=== PATIENT | male | born 1985 | race Caucasian/White ===

== ENCOUNTER 2024-06-03 13:12 | Outpatient (AMB) | payer OTHER, SELFPAY ==
--- NOTE | 2024-06-03 13:14 | A.OFFPC_ITS ---
Vital Signs 06/03/24 13:21 Height 5 ft 10 in Weight 201 lb 4 oz BMI 28.9 BP 134/82 Blood Pressure Location Rt brachial Position Sitting Respiration 16 Pulse 66 Pulse Source Pulse Oximeter Temp 97.7 F Temp Source Temporal Artery Scan Pulse Oximetry (%) 99 Oxygen Delivery Method Room Air Intake Visit Reasons: Tingling in both hands and feet Intake Note: patient here c/o tingling in hands, feet, testicles. Poultry Sexer Required: No Allergies No Known Allergies [No Known Allergies*] Allergy (Verified 06/03/24 13:18) Tobacco use date assessed: 06/03/24 Dental Screening Dental Screen Date: 06/03/24 Did you have a dental visit in the last 12 months?: No Did you have a dental problem in the last 6 months where you did not have access to dental care?: No HPI Tingling in both hands and feet HPI Details Pt is a 38 y/o male who presents today to the walk-in with complaints of tingling in the hands and feet x 7 days. He states it will last all day long but will wax and wane in intensity. He states that he is really worried that he has rheumatoid arthritis because his joints especially in the hands, wrists and feet feel intermittently stiff and tender. No joint swelling. No erythema or rashes. He states that he does not do a lot of repetitive motions. He has not tried anything besides ibuprofen for her symptoms which he states was ineffective. He denies any weakness, headaches, vision changes, back issues, neck pain. He has not seen his PCP in over 5 years. He called to get labs and they told him that he would need to reestablish care. He does report a past medical history of hypertension but has not been on medications in over 5 years. Unemployed. No known tick bites. No recent travel. He does have a fam hx of t2dm. No fam hx of autoimmune illnesses. [facility] Medical History (Updated 06/03/24 @ 13:43 by Kirstin Varela PA-C) Hemorrhoid HTN (hypertension) Family History (Updated 06/03/24 @ 13:21 by Jennifer Ricci) Father FH: mental illness Paternal Aunt FH: mental illness Social History Housing: House Patient Tobacco Use Status: Never used Tobacco e-Cigarette/Vaping Use: Never Used Second Hand Smoke Exposure: No service: No Current occupational status: unemployed Current occupational exposures/hazards: No Cognitive needs: No Hearing needs: No Vision needs: Yes Questionnaire AUDIT C Alcohol Use Questionnaire (AUDIT-C) 1. How often do you have a drink containing alcohol?: Never Total Score: 0 Physical exam (Primary Care) Vital Signs: Last Vital Signs Temp 97.7 F 06/03/24 13:21 Pulse 66 06/03/24 13:21 Resp 16 06/03/24 13:21 BP 134/82 06/03/24 13:21 Pulse Ox 99 06/03/24 13:21 Oxygen Delivery Method Room Air 06/03/24 13:21 BMI result Body Mass Index 28.9 Tobacco/Smoking Status: Tobacco use Status Tobacco use date assessed 06/03/24 06/03/24 13:19 Patient Tobacco Use Status Never used Tobacco 06/03/24 13:19 e-Cigarette/Vaping Use Never Used 06/03/24 13:19 Const Orientation/consciousness: patient oriented x3 Neck Neck: Yes no lymphadenopathy Thyroid: Thyroid normal Carotids: no bruits Resp Auscultation: clear to auscultation bilaterally Cardio Rate: regular rate Rhythm: regular rhythm Heart sounds: S1 normal heart sound present and S2 normal heart sound present Peripheral pulses: radial pulses present, posterior tibial pulses present and dorsalis pedis present Back/Spine/Pelvis Thoracic/Lumbar Spine: thoraco-lumbar ROM normal Neuro General: patient oriented x3, gait normal, Normal light touch and pain sensation, no focal motor deficits, CN's II-XI intact bilaterally, normal sensation to monofilament and deep tendon reflexes 2+ bilaterally Gait exam (Neuro): Normal gait present Motor exam (neuro): 5/5 motor strength present throughout Sensory Exam: double simultaneous stimulation for sensation normal Extrem General: Yes normal to inspection Assessment and Plan Assessment & Plan (1) Paresthesias: Code(s): R20.2 - Paresthesia of skin Plan: Labs ordered today. Physical exam is unremarkable. Advised patient to follow up with PCP and get established. We will follow up pending test results. He will follow up sooner if anything worsens or changes. (2) Polyarthralgia: Code(s): M25.50 - Pain in unspecified joint Plan: As above. Orders: Orders TSH reflex Free T4 06/03/24 M25.50 - Pain in unspecified joint, R20.2 - Paresthesia of skin Lyme IgG/IgM w/reflex to WB 06/03/24 M25.50 - Pain in unspecified joint, R20.2 - Paresthesia of skin Vitamin B12 and Folate 06/03/24 M25.50 - Pain in unspecified joint, R20.2 - Paresthesia of skin IRON PROFILE 06/03/24 M25.50 - Pain in unspecified joint, R20.2 - Paresthesia of skin Hemoglobin A1c 06/03/24 M25.50 - Pain in unspecified joint, R20.2 - Paresthesia of skin CHERELLE Reflex Titer and Pattern 06/03/24 M25.50 - Pain in unspecified joint, R20.2 - Paresthesia of skin Complete Blood Count Auto Diff 06/03/24 M25.50 - Pain in unspecified joint, R20.2 - Paresthesia of skin Rheumatoid Factor 06/03/24 M25.50 - Pain in unspecified joint, R20.2 - Paresthesia of skin Magnesium 06/03/24 M25.50 - Pain in unspecified joint, R20.2 - Paresthesia of skin Comprehensive Met. Panel 06/03/24 M25.50 - Pain in unspecified joint, R20.2 - Paresthesia of skin Ferritin 06/03/24 M25.50 - Pain in unspecified joint, R20.2 - Paresthesia of skin Erythrocyte Sedimentation Rate 06/03/24 M25.50 - Pain in unspecified joint, R20.2 - Paresthesia of skin Coding Level of Care Code New Pt Level 4 (39534) Complex EM visit Add On G2211 Diagnoses Paresthesias R20.2 Polyarthralgia M25.50
[2024-06-03 13:21] VITALS: BP 134/82; PULSE 66; RESP 16; TEMP 36.5; O2SAT 99; BMI 28.9
== END 2024-06-03 13:45 | disposition home or self-care (01) ==
PROVIDERS: PCP Family Medicine; Visit Provider Physician Assistant
DX: R20.2 Paresthesia of skin (principal); M25.50 Pain in unspecified joint
CPT/HCPCS: 99204; G2211

== ENCOUNTER 2024-06-03 13:58 | Outpatient (REF) | payer OTHER, SELFPAY ==
[2024-06-03 17:25] LABS: MANUAL DIFF FLAG NO
[2024-06-03 17:33] LABS: Basophils Percent Auto 0.2 % (0-2); Eosinophils Absolute Auto 0.1 X10*3/uL (0.0-0.4); Eosinophils Percent Auto 0.5 % (0-4); Hematocrit 42.2 % (42.0-52.0); Imm Gran Abs Auto 0.04 X10*3/uL (0.00-0.03); Imm Gran Pct Auto 0.4 % (0.0-0.4); Lymphocytes Absolute Auto 2.7 X10*3/uL (1.2-4.9); Lymphocytes Percent Auto 29.3 % (20-40); Mean Corpuscular HGB Conc 33.2 g/dl (31.0-36.0); Mean Corpuscular Volume 90.4 fL (80.0-98.0); Mean Platelet Volume 9.3 fL (9.4-12.4); Monocytes Absolute Auto 0.8 X10*3/uL (0.1-1.2); Monocytes Percent Auto 8.5 % (2-11); Neutrophils Absolute Auto 5.7 x10*3/uL (2.0-8.3); Neutrophils Percent Auto 61.1 % (45-73); Platelet Count 384 X10*3/uL (160-400); Red Blood Count 4.67 X10*6/uL (4.60-5.80); Red Cell Distribution Width 13.1 % (11.0-16.0); White Blood Count 9.3 X10*3/uL (4.8-10.8)
[2024-06-03 18:22] LABS: Estimated Average Glucose 108 mg/dL; Hemoglobin A1c % 5.4 % (<6.0)
[2024-06-03 18:33] LABS: Erythrocyte Sedimentation Rate 12 MM/HR (0-15)
[2024-06-03 19:25] LABS: Alanine Aminotransferase 20 U/L (0-40); Albumin Level 4.6 g/dL (3.5-5.0); Alkaline Phosphatase 64 U/L (39-117); Anion Gap 16 (12-20); Aspartate Amino Transferase 22 U/L (5-37); Bilirubin Total 0.5 mg/dL (0.0-1.0); Blood Urea Nitrogen 11 mg/dL (9-16); Calcium 9.8 mg/dL (8.4-10.2); Carbon Dioxide 21 mmol/L (22-29); Chloride 106 mmol/L (96-108); Estimated Glomerular Filt Rate > 60; Glucose Random 96 mg/dL (60-115); Iron 92 mcg/dL (45-160); Percent Iron Saturation 30 % (15-50); Sodium 139 mmol/L (135-145); Total Iron Binding Capacity 302 mcg/dL (228-428); Total Protein 8.3 g/dL (6.5-8.0); Unsaturated Iron Binding 210 ug/dL
[2024-06-03 19:26] LABS: Rheumatoid Factor < 13.0 IU/mL (<15.0)
[2024-06-03 19:42] LABS: Ferritin 58 ng/mL (20-250); TSH reflex Free T4 0.72 uIU/mL (0.32-4.0)
[2024-06-03 19:51] LABS: Folate 12.8 ng/mL (> or = 4.0); Vitamin B12 609 pg/mL (200-900)
[2024-06-05 17:29] LABS: Lyme Abs Screen <0.90 index
[2024-06-11 11:02] LABS: Anti Nuclear Antibody Screen NEGATIVE (NEGATIVE)
== END 2024-06-03 13:59 | disposition home or self-care (01) ==
LOC: HO.WFDLDS 13:58
PROVIDERS: Visit Provider Physician Assistant
DX: M25.50 Pain in unspecified joint (principal); R20.2 Paresthesia of skin
CPT/HCPCS: 36415; 80053; 82607; 82728; 82746; 83036; 83540; 83735; 84443; 85025; 85652; 86038; 86431; 86617; 86618

== ENCOUNTER 2024-11-30 10:32 | Outpatient (AMB) | payer OTHER, SELFPAY ==
--- NOTE | 2024-11-30 11:07 | A.OFFPC_ITS ---
Vital Signs 11/30/24 11:13 Height 5 ft 10 in Weight 202 lb 4 oz BMI 29.0 BP 140/85 H Blood Pressure Location Rt brachial Position Sitting Respiration 16 Pulse 87 Pulse Source Pulse Oximeter Temp 98.5 F Temp Source Oral Pulse Oximetry (%) 100 Oxygen Delivery Method Simple Mask Intake Visit Reasons: est care Intake Note: patient here for new patient visit Facing End Trimmer Required: No Allergies No Known Allergies [No Known Allergies*] Allergy (Verified 11/30/24 11:11) Medication List - Last Reconciled 11/30/24 by Karel Clay MD No Known Home Meds Tobacco use date assessed: 11/30/24 Dental Screening Dental Screen Date: 11/30/24 Did you have a dental visit in the last 12 months?: No Did you have a dental problem in the last 6 months where you did not have access to dental care?: No Was dental information given to patient?: No HPI est care HPI Details New Patient? ?? Prior PCP:? No PCP in last 2 yrs. Acute issue(s):? HTN ?? PMHx:? HTN, SurgHx:?None FHx:? Mom: CAD, ID. Dad: DM, Mental disorders. SocHx: Nonsmoker, EtOH: None. No drugs HPI Comments History of Present Illness Details Documentation assistance for Karel Clay MD, was provided by Sesar Noriega,? Leather Tanner on 11/30/2024 at 12:03 PM EST. I, Dr. Clay, have read, observed, and verified documentation. ?? PFSH Medical History (Updated 11/30/24 @ 12:10 by Sesar Noriega) Prostate troubles IBS (irritable bowel syndrome) Depression Hemorrhoid HTN (hypertension) Family History (Updated 11/30/24 @ 11:13 by Jennifer Ricci) Father FH: mental illness Diabetes Paternal Aunt FH: mental illness Mother High blood pressure Maternal Grandmother High blood pressure Diabetes Paternal Grandmother Diabetes Social History Housing: House Patient Tobacco Use Status: Never used Tobacco e-Cigarette/Vaping Use: Never Used Second Hand Smoke Exposure: No service: No Current occupational status: unemployed Current occupational exposures/hazards: No Cognitive needs: No Hearing needs: No Vision needs: Yes Questionnaire PHQ-9 Over the last 2 weeks, how often have you been bothered by any of the following problems? 1. Little interest or pleasure in doing things: not at all 2. Feeling down, depressed, or hopeless: nearly every day 3. Trouble falling or staying asleep, or sleeping too much: several days 4. Feeling tired or having little energy: several days 5. Poor appetite or overeating: more than half the days 6. Feeling bad about yourself - or that you are a failure or have let yourself or your family down: nearly every day 7. Trouble concentrating on things, such as reading the newspaper or watching television: not at all 8. Moving or speaking so slowly that other people could have noticed. Or the opposite - being so fidgety or restless that you have been moving around a lot more than usual: several days 9. Thoughts that you would be better off or of hurting yourself in some way: nearly every day Total score: 14 [id number] - PHQ-9 Billing: Yes Source: Developed by Drs. Roberto Rudd, Yadi Gordon, Taj Guevara and colleagues, with an educational saima from [employer]. Thrive Questionnaire Date Thrive assessed: 11/30/24 I am a: Patient What is your living situation today?: I have a steady place to live Within the past 12 months, did the food you bought not last and you didn't have the money to get more?: Never true Within the past 12 months, did you worry whether your food would run out before you got money to buy more?: Never true Do you have trouble paying for medicines?: No Do you have trouble getting transportation to medical appointments?: No Do you have trouble paying your heating and electricity bill?: I choose not to answer this question Do you have trouble taking care of your child, family member or friend?: I choose not to answer this question Do you have trouble with day-to-day activities such as bathing, preparing meals, shopping, managing finances, etc.?: No Are you currently unemployed and looking for a job?: I choose not to answer this question Are you interested in more education?: I choose not to answer this question Please select the resources that you would like help with: None Currently or been in a relationship where the following occur: I choose not to answer THRIVE Score: 0 AUDIT C Alcohol Use Questionnaire (AUDIT-C) 1. How often do you have a drink containing alcohol?: Never 3. How often do you have six or more drinks on one occasion?: Never Total Score: 0 JOEL-7 AMB Questionnaire JOEL-7 Date JOEL - 7 assessed: 11/30/24 Feeling nervous, anxious, or on edge: 0 = Not at all Not being able to stop or control worryin = Not at all Worrying too much about different things: 0 = Not at all Trouble relaxin = Not at all Being so restless that it is hard to sit still: 3 = Nearly every day Becoming easily annoyed or irritable: 1 = Several days Feeling afraid as if something awful might happen: 0 = Not at all Total JOEL-7 score (0-4 normal; 5-9 mild; 10-14 moderate; 15-21 severe): 4 Source: Developed by Drs. Roberto Rudd, Yadi Gordon, Taj Guevara and colleagues, with an educational saima from [employer]. JOEL-7 Assessment Billing JOEL-7 Assessment Tool: JOEL-7 Assessment 37674 Review of Systems Const Denies chills, Denies fatigue, Denies fever(s), Denies headache(s) and Denies weakness ENT Denies dizziness and Denies headache(s) Card Denies chest pain, Denies lightheadedness, Denies dyspnea and Denies other (Palpitations) Resp Denies cough, Denies dyspnea, Denies wheezing and Denies other ( shortness of breath) Musc Denies numbness and Denies tingling Neuro Denies dizziness, Denies headache(s), Denies numbness, Denies tingling, Denies paresthesias and Denies weakness Psych Denies anxiety and Denies depression Endo Denies fatigue Aller/Immun Denies wheezing Physical exam (Primary Care) Vital Signs: Last Vital Signs Temp 98.5 F 11/30/24 11:13 Pulse 87 11/30/24 11:13 Resp 16 11/30/24 11:13 BP 140/85 H 11/30/24 11:13 Pulse Ox 100 11/30/24 11:13 Oxygen Delivery Method Simple Mask 11/30/24 11:13 BMI result Body Mass Index 29.0 Tobacco/Smoking Status: Tobacco use Status Tobacco use date assessed 11/30/24 11/30/24 11:20 Patient Tobacco Use Status Never used Tobacco 11/30/24 11:10 e-Cigarette/Vaping Use Never Used 11/30/24 11:10 PHQ-9: PHQ-9 Score PHQ-9: Total score 14 11/30/24 12:03 Thrive Assessment: Date of Thrive Assessment Date Thrive assessed 11/30/24 11/30/24 11:10 Currently or been in a relationship where the following occur: I choose not to answer Const General: no acute distress and well developed Nutritional Appearance: well nourished Orientation/consciousness: patient oriented x3 HENMT Head: Yes normocephalic and Yes atraumatic Eyes General: appearance normal, both eyes and all related structures Pupils: Equal, round and reactive pupils present EOM: EOMs intact bilaterally Resp Effort & Inspection: normal respiratory effort Auscultation: clear to auscultation bilaterally Cardio Rate: regular rate Rhythm: regular rhythm Heart sounds: S1 normal heart sound present, S2 normal heart sound present, no gallops, no murmurs and no rubs Neuro General: patient oriented x3 and gait normal Cranial nerves: Yes Equal, round and reactive pupils present Psych Affect: normal affect Coding Level of Care Code New Pt Level 3 (16337) Diagnoses HTN (hypertension) I10 Laboratory exam ordered as part of routine general medical examination Z00.00 Additional Codes JOEL-7 Assessment Billing - JOEL-7 Assessment Tool: JOEL-7 Assessment 36830 ([id number]) PHQ-9 - 50662 - PHQ-9 Billing: Yes ([id number]) Assessment & Plan Assessment & Plan (1) HTN (hypertension): Code(s): I10 - Essential (primary) hypertension Category: Medical Plan: Blood?pressure?is?too?high.??He?has?a?his tory?of?hypertension?and?has?tried?lisinopril?in?the?past?but?this?caused?a?coug h. Goal?is?less?than?140/90 Start?losartan (2) Laboratory exam ordered as part of routine general medical examination: Code(s): Z00.00 - Encounter for general adult medical examination without abnormal findings Category: Medical Plan: Check?labs Orders: Orders Microalbumin, Random (w Creat) Today I10 - Essential (primary) hypertension TSH reflex Free T4 Today Z00.00 - Encounter for general adult medical examination without abnormal findings Comprehensive [place]. Panel Fast Today Z00.00 - Encounter for general adult medical examination without abnormal findings Lipid Panel Today Z00.00 - Encounter for general adult medical examination without abnormal findings UA and rflx microscopic Today Z00.00 - Encounter for general adult medical examination without abnormal findings Medications: New losartan 25 mg PO DAILY 90 days 90 tabs 2RF
[2024-11-30 11:13] VITALS: BP 140/85; PULSE 87; RESP 16; TEMP 36.9; O2SAT 100; BMI 29.0
== END 2024-11-30 12:19 | disposition home or self-care (01) ==
PROVIDERS: PCP Family Medicine; Visit Provider Family Medicine
DX: I10 Essential (primary) hypertension (principal); Z00.00 Encounter for general adult medical examination without abnormal findings

== ENCOUNTER 2024-11-30 12:38 | Outpatient (REF) | payer OTHER, SELFPAY ==
[2024-11-30 14:06] LABS: Appearance Urine Clear; Color Urine Yellow; Glucose Urine UA Negative (Negative); Leukocyte Esterase Urine Negative (Negative); Nitrite Urine Negative (Negative); PH 6.5 (5.0-9.0); Urine Blood Negative (Negative); Urine Ketones Negative (Negative); Urine Protein Negative (Neg-Trace)
[2024-11-30 14:33] LABS: Alanine Aminotransferase 24 U/L (0-40); Albumin Level 4.4 g/dL (3.5-5.0); Alkaline Phosphatase 69 U/L (39-117); Anion Gap 8 (12-20); Aspartate Amino Transferase 25 U/L (5-37); Bilirubin Total 0.4 mg/dL (0.0-1.0); Blood Urea Nitrogen 10 mg/dL (9-16); Calcium 9.3 mg/dL (8.4-10.2); Carbon Dioxide 29 mmol/L (22-29); Chloride 107 mmol/L (96-108); Cholesterol 182 mg/dL (<200); Estimated Glomerular Filt Rate > 60; Glucose Fasting 96 mg/dL (60-99); HDL Cholesterol 45 mg/dL (>40); LDL Cholesterol Calculated 114 mg/dL (<100); Potassium 4.1 mmol/L (3.3-5.1); Sodium 140 mmol/L (135-145); Total Protein 8.4 g/dL (6.5-8.0); Triglycerides 116 mg/dL (<150)
[2024-11-30 14:36] LABS: Creatinine Urine 92.91 mg/dL; Microalbumin Urine < 5.0 mg/L
== END 2024-11-30 12:39 | disposition home or self-care (01) ==
LOC: HO.WFDLDS 12:38
PROVIDERS: Visit Provider Family Medicine
DX: I10 Essential (primary) hypertension (principal); Z00.00 Encounter for general adult medical examination without abnormal findings
CPT/HCPCS: 36415; 80053; 80061; 81003; 82043; 82570; 84443; 96127; 99202

== ENCOUNTER 2025-05-25 15:42 | Outpatient (AMB) | payer OTHER, SELFPAY ==
--- NOTE | 2025-05-25 15:45 | MHC.PC.OV ---
Vital Signs 05/25/25 16:06 Height 5 ft 10 in Weight 178 lb 2 oz BMI 25.6 BP 138/78 Blood Pressure Location Lt brachial Position Sitting Pulse 98 Pulse Source Pulse Oximeter Temp 97.9 F Temp Source Temporal Artery Scan Pulse Oximetry (%) 97 Oxygen Delivery Method Room Air Intake Visit Reasons: CPE- PHQ-9 needs to be re-done! see comments Intake Note: Yanick presents in the office today his annual physical. Allergies No Known Allergies (No Known Allergies*) Allergy (Verified 05/25/25 16:05) Tobacco use date assessed: 05/25/25 Dental Screening Dental Screen Date: 05/25/25 Did you have a dental visit in the last 12 months?: No Did you have a dental problem in the last 6 months where you did not have access to dental care?: No Was dental information given to patient?: Patient has dentist HPI CPE- PHQ-9 needs to be re-done! see comments HPI Details 39 y/o male presents for a CPE with f/u labs and health maint. Was started on losartan last office visit. Labs drawn 11/30/24. Reviewed labs with pt. Triglycerides 116. TC 182. LDL 114. HDL 45. TSH 0.70. A1c today 5.6%. Strong FHx of diabetes. PHQ-9 11, JOEL-7 7 today. Pt notes he has had a therapist before in college. Declines medications or a therapist today. Denies SI/HI today but does admit thoughts at times. Complaitns of some blood in stool. [facility], [facility] Medical History (Updated 05/25/25 @ 16:58 by Sesar Noriega) Prostate troubles IBS (irritable bowel syndrome) Depression Hemorrhoid HTN (hypertension) Family History Father FH: mental illness Diabetes Paternal Aunt FH: mental illness Mother High blood pressure Maternal Grandmother High blood pressure Diabetes Paternal Grandmother Diabetes Social History (Updated 05/25/25 @ 16:06 by Janny Franco MA) Housing: House Alcohol intake: never Patient Tobacco Use Status: Never used Tobacco e-Cigarette/Vaping Use: Never Used Second Hand Smoke Exposure: No service: No Current occupational status: unemployed Current occupational exposures/hazards: No Cognitive needs: No Hearing needs: No Vision needs: Yes Questionnaire PHQ-9 Over the last 2 weeks, how often have you been bothered by any of the following problems? 1. Little interest or pleasure in doing things: more than half the days 2. Feeling down, depressed, or hopeless: nearly every day 3. Trouble falling or staying asleep, or sleeping too much: not at all 4. Feeling tired or having little energy: more than half the days 5. Poor appetite or overeating: several days 6. Feeling bad about yourself - or that you are a failure or have let yourself or your family down: nearly every day 7. Trouble concentrating on things, such as reading the newspaper or watching television: not at all 8. Moving or speaking so slowly that other people could have noticed. Or the opposite - being so fidgety or restless that you have been moving around a lot more than usual: not at all 9. Thoughts that you would be better off or of hurting yourself in some way: not at all Total score: 11 Depression Screening Interpretation: Positive Depression Screening Follow-up: Declines treatment Depression Screening Done: Yes 25367 - PHQ-9 Billing: Yes Source: Developed by Drs. Roberto Rudd, Yadi Gordon, Taj Guevara and colleagues, with an educational saima from [employer]. Thrive Questionnaire Date Thrive assessed: 05/25/25 I am a: Patient What is your living situation today?: I have a steady place to live Within the past 12 months, did the food you bought not last and you didn't have the money to get more?: Never true Within the past 12 months, did you worry whether your food would run out before you got money to buy more?: Never true Do you have trouble paying for medicines?: No Do you have trouble getting transportation to medical appointments?: No Do you have trouble paying your heating and electricity bill?: I choose not to answer this question Do you have trouble taking care of your child, family member or friend?: I choose not to answer this question Do you have trouble with day-to-day activities such as bathing, preparing meals, shopping, managing finances, etc.?: No Are you currently unemployed and looking for a job?: I choose not to answer this question Are you interested in more education?: I choose not to answer this question Please select the resources that you would like help with: None Currently or been in a relationship where the following occur: I choose not to answer THRIVE Score: 0 JOEL-7 AMB Questionnaire JOEL-7 Date JOEL - 7 assessed: 05/25/25 Feeling nervous, anxious, or on edge: 1 = Several days Not being able to stop or control worryin = Several days Worrying too much about different things: 0 = Not at all Trouble relaxin = Not at all Being so restless that it is hard to sit still: 3 = Nearly every day Becoming easily annoyed or irritable: 2 = More than half the days Feeling afraid as if something awful might happen: 0 = Not at all Total JOEL-7 score (0-4 normal; 5-9 mild; 10-14 moderate; 15-21 severe): 7 Source: Developed by Drs. Roberto Rudd, Yadi Gordon, Taj Guevara and colleagues, with an educational saima from [employer]. JOEL-7 Assessment Billing JOEL-7 Assessment Tool: JOEL-7 Assessment 76209 Review of Systems Const Denies chills, Denies fatigue, Denies fever(s), Denies headache(s) and Denies weakness Eyes Denies change in vision ENT Denies dizziness, Denies headache(s), Denies hearing loss, Denies nasal congestion, Denies sinus pain, Denies sinus pressure and Denies sore throat Card Denies chest pain, Denies lightheadedness, Denies dyspnea and Denies other (palpitations) Resp Denies cough, Denies dyspnea and Denies wheezing GI Denies abdominal pain, Denies melena, Denies hematochezia, Denies change in bowel habits, Denies dyspepsia and Denies nausea Denies hematuria and Denies dysuria Musc Denies abnormal gait, Denies myalgias, Denies arthralgias, Denies numbness and Denies tingling Skin/Breast Denies rash, Denies unusual bruising and Denies wounds Neuro Denies abnormal gait, Denies dizziness, Denies headache(s), Denies memory loss, Denies numbness, Denies Sensory deficit (Neuro), Denies tingling and Denies weakness Psych Reports anxiety, Reports depression and Denies memory loss Endo Denies cold intolerance, Denies fatigue, Denies heat intolerance, Denies polydipsia and Denies polyuria Vlad/Lymph Denies easy bleeding and Denies easy bruising Aller/Immun Denies wheezing Physical exam (Primary Care) Vital Signs: Last Vital Signs Temp 97.9 F 05/25/25 16:06 Pulse 98 05/25/25 16:06 BP 138/78 05/25/25 16:06 Pulse Ox 97 05/25/25 16:06 Oxygen Delivery Method Room Air 05/25/25 16:06 BMI result Body Mass Index 25.6 Tobacco/Smoking Status: Tobacco use Status Tobacco use date assessed 05/25/25 05/25/25 16:09 Patient Tobacco Use Status Never used Tobacco 05/25/25 16:06 e-Cigarette/Vaping Use Never Used 05/25/25 16:06 PHQ-9: PHQ-9 Score PHQ-9: Total score 11 05/25/25 16:36 Depression Screening Interpretation: Positive Depression Screening Follow-up: Declines treatment Thrive Assessment: Date of Thrive Assessment Date Thrive assessed 05/25/25 05/25/25 15:47 Currently or been in a relationship where the following occur: I choose not to answer Const General: no acute distress, well developed, alert and awake Nutritional Appearance: well nourished Orientation/consciousness: patient oriented x3 HENMT Head: Yes normocephalic and Yes atraumatic Ears: hearing grossly normal bilaterally and TM's normal bilaterally General nose exam: Normal external nose present and Normal nares present Mouth: Normal oral and palatal mucosa present and moist mucous membranes Teeth and gingiva: dentition normal Throat: Yes posterior oropharynx normal Eyes General: appearance normal, both eyes and all related structures Pupils: Equal, round and reactive pupils present and Pupil accommodation reflex normal EOM: EOMs intact bilaterally Neck Neck: Yes normal visual inspection, Yes no lymphadenopathy and Yes trachea midline Thyroid: Thyroid normal Carotids: no bruits Lymphatic: no lymphadenopathy noted Chest Chest palpation & inspection: normal inspection of the chest Resp Effort & Inspection: normal respiratory effort Auscultation: clear to auscultation bilaterally Cardio Rate: regular rate Rhythm: regular rhythm Heart sounds: S1 normal heart sound present, S2 normal heart sound present, no gallops, no murmurs and no rubs Bruits: no abdominal aortic bruits and no carotid bruits GI Palpation (GI): No Abdominal aortic bruit present, Soft to palpation, nontender, No hepatosplenomegaly present and No Rebound tenderness present Auscultation: normal bowel sounds General: Yes no CVA tenderness Back/Spine/Pelvis Back: no CVA tenderness Cervical Spine: cervical ROM normal and No Cervical spine tenderness Thoracic/Lumbar Spine: thoraco-lumbar ROM normal, No pain with thoraco-lumbar ROM, No thoracic spinal tenderness and No lumbar spinal tenderness Skin Lesions: no lesions Rashes: no rashes Trauma: no lacerations or abrasions Wounds: no wounds Nails: normal Neuro General: patient oriented x3 Cranial nerves: Yes Equal, round and reactive pupils present Cognition (Neuro): normal cognition Gait exam (Neuro): Normal gait present Motor exam (neuro): 5/5 motor strength present throughout Sensory Exam: No Sensory deficit (Neuro) Deep tendon reflexes (DTR's): Right patellar reflex intensity grade: 2+ and Left patellar reflex intensity grade: 2+ Extrem General: Yes normal to inspection and No edema Psych Appearance: grossly normal Affect: normal affect Attitude: cooperative Thought process: Normal thought process present Coding Level of Care Code Est Pt Level 3 (61167) Est Pt Prev Care 18-39y([id number]) Diagnoses Adult general medical exam Z00.00 HTN (hypertension) I10 Depression F32.A Elevated fasting glucose R73.01 Blood in stool K92.1 Additional Codes JOEL-7 Assessment Billing - JOEL-7 Assessment Tool: JOEL-7 Assessment 18280 ([id number]) PHQ-9 - 83427 - PHQ-9 Billing: Yes ([id number]) Assessment & Plan Assessment & Plan (1) Adult general medical exam: Code(s): Z00.00 - Encounter for general adult medical examination without abnormal findings Category: Medical Plan: 39-year-old male presents for complete physical (2) HTN (hypertension): Code(s): I10 - Essential (primary) hypertension Category: Medical Plan: Blood pressure has been high in today at upper limits of controlled range Increase losartan from 25 mg daily to 50 daily (3) Depression: Code(s): F32.A - Depression, unspecified Category: Medical Plan: Significant depression. Patient denies imminent SI/HI though he says he has thoughts of this at times. Patient nose suicide prevention hotline and we discussed crisis center at the emergency department. Also discussed that he can call here or come here if in the evening about self-harm. He declines medication or referral to a therapist today. Strongly encouraged him to reconsider those and he did not know if he changes mind. (4) Elevated fasting glucose: Code(s): R73.01 - Impaired fasting glucose Category: Medical Plan: A1c 5.6%. Top of normal range He has a strong family history of diabetes Encouraged a diet lower in sugars and starches (5) Blood in stool: Code(s): K92.1 - Melena Category: Medical Plan: Intermittent blood in stool in in bowl Referred to GI Orders: Orders Comprehensive [place]. Panel Fast Today R73.01 - Impaired fasting glucose, Z00.00 - Encounter for general adult medical examination without abnormal findings Lipid Panel Today R73.01 - Impaired fasting glucose, Z00.00 - Encounter for general adult medical examination without abnormal findings Hemoglobin A1c Today R73.01 - Impaired fasting glucose AMB Hemoglobin A1c Today Z13.9 - Encounter for screening, unspecified Referrals Gastroenterology Referral K92.1 - Melena Medications: Changed From losartan 25 mg PO DAILY 90 days 90 tabs 2RF To losartan 50 mg PO DAILY 90 tabs 2RF 90 days
[2025-05-25 16:06] VITALS: BP 138/78; PULSE 98; TEMP 36.6; O2SAT 97; BMI 25.6
== END 2025-05-25 17:02 | disposition home or self-care (01) ==
LOC: HO.HMCFM 15:42
PROVIDERS: PCP Family Medicine; Visit Provider Family Medicine
DX: Z00.00 Encounter for general adult medical examination without abnormal findings (principal); I10 Essential (primary) hypertension; F32.A Depression, unspecified; R73.01 Impaired fasting glucose; K92.1 Melena

== ENCOUNTER → 2025-05-25 15:42 | Outpatient (BNVA) | payer OTHER, SELFPAY | PROVIDERS: PCP Family Medicine; Visit Provider Family Medicine | DX: Z00.00 Encounter for general adult medical examination without abnormal findings (principal); F32.A Depression, unspecified; I10 Essential (primary) hypertension; R73.01 Impaired fasting glucose; K92.1 Melena | CPT/HCPCS: 96127; 99212; 99395 ==

== ENCOUNTER 2025-08-06 09:34 | Outpatient (REF) | payer OTHER, SELFPAY ==
[2025-08-06 14:50] LABS: Chlamydia pneumoniae PCR Not Detected (Not Detect.); Coronavirus 229E PCR Not Detected (Not Detect.); Coronavirus HKU1 PCR Not Detected (Not Detect.); Coronavirus NL63 PCR Not Detected (Not Detect.); Coronavirus OC43 PCR Not Detected (Not Detect.); RSV PCR Not Detected (Not Detect.); Rhino/Enterovirus PCR Not Detected (Not Detect.)
[2025-08-06 14:59] LABS: Influenza A H1 PCR Not Detected (Not Detect.); Influenza A H1-2009 PCR Not Detected (Not Detect.); Influenza A H3 PCR Not Detected (Not Detect.); SARS-CoV-2 PCR Not Detected (Not Detect.)
== END 2025-08-06 09:35 | disposition home or self-care (01) ==
LOC: HO.LAB 09:34
PROVIDERS: Physician Assistant; PCP Family Medicine
DX: J06.9 Acute upper respiratory infection, unspecified (principal); J02.9 Acute pharyngitis, unspecified
CPT/HCPCS: 87633; 99212

== ENCOUNTER 2025-08-06 09:34 | Outpatient (AMB) | payer OTHER, SELFPAY ==
[2025-08-06 09:36] VITALS: BP 138/90; PULSE 94; TEMP 36.8; O2SAT 98; BMI 25.1
--- NOTE | 2025-08-06 09:36 | MHC.OFFWIV ---
Intake Vital Signs 08/06/25 09:36 Height 5 ft 10 in Weight 175 lb BMI 25.1 BP 138/90 H Blood Pressure Location Lt brachial Position Sitting Pulse 94 Pulse Source Pulse Oximeter Temp 98.2 F Temp Source Oral Pulse Oximetry (%) 98 Oxygen Delivery Method Room Air Intake Visit Reasons: EP sore throat, right swollen tonsil swollen Patient Tobacco Use Status: Never used Tobacco Allergies No Known Allergies (No Known Allergies*) Allergy (Verified 08/06/25 09:38) Do you need a note to return to daycare/school/sports/work: No HPI HPI Comments History of Present Illness Details History - The patient is a 40-year-old male presenting with a sore throat and swollen tongue. - The sore throat has persisted for a couple of weeks without improvement. - The patient noticed swelling of the right side of the tongue/tonsils last night. - No associated symptoms such as cough, congestion, fever, ear pain, sinus pain, or head congestion were reported. - The patient is uncertain about having seasonal allergies. Physical Exam General: Cooperative, healthy appearing, comfortable and no acute distress Orientation/consciousness: Patient oriented x3 Limitations: No limitations Head: Normal to inspection Ears: Hearing grossly normal bilaterally, external ears normal and TM's normal bilaterally Nose: Normal external nose present, Normal nares present and No nasal discharge present Face and sinus: Normal facial exam and Yes sinuses nontender Mouth: Normal oral and palatal mucosa present and moist mucous membranes Throat: Yes tonsils with erythema but no edema, no exudates, Yes uvula midline. Posterior oropharynx erythema Eyes: Appearance normal, both eyes and all related structures Neck: Normal visual inspection, full ROM Respiratory: Normal respiratory effort, able to speak in complete sentences, no respiratory distress, not tachypneic, no tripod positioning and no use of accessory muscles Skin: No rashes or lesions noted Neuro: Patient oriented x3 Extremities: Normal to inspection and Yes no clubbing, cyanosis or edema Review of Systems - General: Denies fever - Respiratory: Denies cough, congestion - ENT: Reports sore throat and swollen tongue; denies ear pain, sinus pain, head congestion All systems reviewed and are unremarkable except as noted in HPI and above [facility] Medical History (Updated 08/06/25 @ 09:48 by Harriett Huerta PA-C) Prostate troubles IBS (irritable bowel syndrome) Depression Hemorrhoid HTN (hypertension) Family History Father FH: mental illness Diabetes Paternal Aunt FH: mental illness Mother High blood pressure Maternal Grandmother High blood pressure Diabetes Paternal Grandmother Diabetes Social History (Updated 05/25/25 @ 16:06 by Janny Franco MA) Housing: House Alcohol intake: never Patient Tobacco Use Status: Never used Tobacco e-Cigarette/Vaping Use: Never Used Second Hand Smoke Exposure: No service: No Current occupational status: unemployed Current occupational exposures/hazards: No Cognitive needs: No Hearing needs: No Vision needs: Yes Review of Systems Const All systems reviewed & are unremarkable except as noted in HPI and below Physical Exam Vital Signs: Last Vital Signs Temp 98.2 F 08/06/25 09:36 Pulse 94 08/06/25 09:36 BP 138/90 H 08/06/25 09:36 Pulse Ox 98 08/06/25 09:36 Oxygen Delivery Method Room Air 08/06/25 09:36 BMI result Body Mass Index 25.1 Assessment & Plan Assessment & Plan (1) Acute viral pharyngitis: Code(s): J02.9 - Acute pharyngitis, unspecified Plan: Plan Patient was informed and verbally consented to the use of an ambient scribe for clinic note documentation during this visit. VSS, pt well appearing and PE remarkable for posterior oropharynx erythema 1. Pharyngitis - A throat swab was performed to test for streptococcal infection, this was negative. - A viral panel was ordered to test for multiple viruses. - Symptomatic treatment with OTC medications. Orders: [place] [place] [facility] [place] J06.9 - Acute upper respiratory infection, unspecified Coding Level of Care Code Est Pt Level 3 (42793) Diagnoses Acute viral pharyngitis J02.9
== END 2025-08-06 09:50 | disposition home or self-care (01) ==
PROVIDERS: PCP Family Medicine; Visit Provider Physician Assistant
DX: J02.9 Acute pharyngitis, unspecified (principal)

== ENCOUNTER 2025-08-20 09:08 | Outpatient (REF) | payer OTHER, SELFPAY ==
[2025-08-20 11:16] LABS: Alanine Aminotransferase 20 U/L (0-40); Albumin Level 4.9 g/dL (3.5-5.0); Alkaline Phosphatase 65 U/L (39-117); Anion Gap 12 (12-20); Aspartate Amino Transferase 21 U/L (5-37); Blood Urea Nitrogen 11 mg/dL (9-16); Calcium 9.6 mg/dL (8.4-10.2); Carbon Dioxide 26 mmol/L (22-29); Chloride 106 mmol/L (96-108); Cholesterol 187 mg/dL (<200); Estimated Glomerular Filt Rate > 60; HDL Cholesterol 45 mg/dL (>40); Potassium 4.1 mmol/L (3.3-5.1); Sodium 140 mmol/L (135-145); Total Protein 8.2 g/dL (6.5-8.0); Triglycerides 111 mg/dL (<150)
== END 2025-08-20 09:09 | disposition home or self-care (01) ==
LOC: HO.HMGCLDS 09:08
PROVIDERS: PCP Family Medicine; Visit Provider Family Medicine
DX: Z00.00 Encounter for general adult medical examination without abnormal findings (principal); R73.01 Impaired fasting glucose
CPT/HCPCS: 36415; 80053; 80061; 83036

== ENCOUNTER 2025-08-27 09:16 | Outpatient (AMB) | payer OTHER, SELFPAY ==
--- NOTE | 2025-08-27 09:33 | MHC.PC.OV ---
Vital Signs 08/27/25 09:39 Height 5 ft 10 in Weight 172 lb 4 oz BMI 24.7 BP 118/80 Blood Pressure Location Rt brachial Position Sitting Respiration 16 Pulse 91 Pulse Source Pulse Oximeter Temp 99.1 F Temp Source Temporal Artery Scan Pulse Oximetry (%) 99 Oxygen Delivery Method Room Air Intake Visit Reasons: f/u depression, hypertension, labs Intake Note: Yanick presents in the office today for a follow up to depression, HTN and lab results. Allergies No Known Allergies (No Known Allergies*) Allergy (Verified 08/27/25 09:36) Tobacco use date assessed: 08/27/25 Dental Screening Dental Screen Date: 08/27/25 Did you have a dental visit in the last 12 months?: No Did you have a dental problem in the last 6 months where you did not have access to dental care?: No Was dental information given to patient?: Patient declined HPI f/u depression, hypertension, labs HPI Details 40 y/o male presents to f/u depression, HTN, labs. BP today 118/80, 91p. He is on losartan 50mg daily. PHQ-9 13 today. Does note SI and states he thinks about it all the time. Pt states he has a plan but says it is not imminent. He mentions how most of his issues are due to stressors in his life. Labs drawn in August. A1c 5.7%. [facility] Medical History (Updated 08/27/25 @ 10:17 by Sesar Noriega) Prostate troubles IBS (irritable bowel syndrome) Depression Hemorrhoid HTN (hypertension) Family History Father FH: mental illness Diabetes Paternal Aunt FH: mental illness Mother High blood pressure Maternal Grandmother High blood pressure Diabetes Paternal Grandmother Diabetes Social History (Updated 08/27/25 @ 09:37 by Janny Franco CMA) Housing: House Alcohol intake: never Patient Tobacco Use Status: Never used Tobacco e-Cigarette/Vaping Use: Never Used Second Hand Smoke Exposure: No Use of substances other than those prescribed or required for medical reasons: No service: No Current occupational status: unemployed Current occupational exposures/hazards: No Cognitive needs: No Hearing needs: No Vision needs: Yes Questionnaire PHQ-9 Over the last 2 weeks, how often have you been bothered by any of the following problems? 1. Little interest or pleasure in doing things: several days 2. Feeling down, depressed, or hopeless: nearly every day 3. Trouble falling or staying asleep, or sleeping too much: several days 4. Feeling tired or having little energy: more than half the days 5. Poor appetite or overeating: not at all 6. Feeling bad about yourself - or that you are a failure or have let yourself or your family down: nearly every day 7. Trouble concentrating on things, such as reading the newspaper or watching television: not at all 8. Moving or speaking so slowly that other people could have noticed. Or the opposite - being so fidgety or restless that you have been moving around a lot more than usual: not at all 9. Thoughts that you would be better off or of hurting yourself in some way: nearly every day Total score: 13 Depression Screening Interpretation: Positive Depression Screening Done: Yes 02821 - PHQ-9 Billing: Yes Source: Developed by Drs. Roberto Rudd, Yadi Gordon, Taj Guevara and colleagues, with an educational saima from [employer]. Thrive Questionnaire Date Thrive assessed: 11/23/24 I am a: Patient What is your living situation today?: I have a steady place to live Within the past 12 months, did the food you bought not last and you didn't have the money to get more?: Never true Within the past 12 months, did you worry whether your food would run out before you got money to buy more?: Never true Do you have trouble paying for medicines?: No Do you have trouble getting transportation to medical appointments?: No Do you have trouble paying your heating and electricity bill?: I choose not to answer this question Do you have trouble taking care of your child, family member or friend?: I choose not to answer this question Do you have trouble with day-to-day activities such as bathing, preparing meals, shopping, managing finances, etc.?: No Are you currently unemployed and looking for a job?: I choose not to answer this question Are you interested in more education?: I choose not to answer this question Please select the resources that you would like help with: None Currently or been in a relationship where the following occur: I choose not to answer THRIVE Score: 0 OJEL-7 AMB Questionnaire JOEL-7 Date JOEL - 7 assessed: 05/25/25 Source: Developed by Drs. Roberto Rudd, Yadi Gordon, Taj Guevara and colleagues, with an educational saima from [employer]. Review of Systems Const Denies chills, Denies fatigue, Denies fever(s), Denies headache(s) and Denies weakness ENT Denies dizziness and Denies headache(s) Card Denies dyspnea Resp Denies cough, Denies dyspnea, Denies wheezing and Denies other (shortness of breath) Musc Denies numbness and Denies tingling Neuro Denies dizziness, Denies headache(s), Denies numbness, Denies tingling and Denies weakness Psych Reports depression Endo Denies fatigue Aller/Immun Denies wheezing Physical exam (Primary Care) Vital Signs: Last Vital Signs Temp 99.1 F 08/27/25 09:39 Pulse 91 08/27/25 09:39 Resp 16 08/27/25 09:39 BP 118/80 08/27/25 09:39 Pulse Ox 99 08/27/25 09:39 Oxygen Delivery Method Room Air 08/27/25 09:39 BMI result Body Mass Index 24.7 Tobacco/Smoking Status: Tobacco use Status Tobacco use date assessed 08/27/25 08/27/25 09:43 Patient Tobacco Use Status Never used Tobacco 08/27/25 09:37 e-Cigarette/Vaping Use Never Used 08/27/25 09:37 PHQ-9: PHQ-9 Score PHQ-9: Total score 13 08/27/25 09:43 Depression Screening Interpretation: Positive Thrive Assessment: Date of Thrive Assessment Date Thrive assessed 11/23/24 08/27/25 09:35 Currently or been in a relationship where the following occur: I choose not to answer Const General: well developed; No acute distress Nutritional Appearance: well nourished Orientation/consciousness: patient oriented x3 HENMT Head: Yes normocephalic and Yes atraumatic Eyes General: appearance normal, both eyes and all related structures Pupils: Equal, round and reactive pupils present EOM: EOMs intact bilaterally Resp Effort & Inspection: normal respiratory effort Auscultation: clear to auscultation bilaterally Cardio Rate: regular rate Rhythm: regular rhythm Heart sounds: S1 normal heart sound present, S2 normal heart sound present, no gallops, no murmurs and no rubs Neuro General: patient oriented x3 and gait normal Cranial nerves: Yes Equal, round and reactive pupils present Psych Affect: normal affect Coding Level of Care Code Est Pt Level 3 (46309) Diagnoses HTN (hypertension) I10 Depression F32.A Pre-diabetes R73.03 Additional Codes PHQ-9 - 18518 - PHQ-9 Billing: Yes ([id number]) Assessment & Plan Assessment & Plan (1) HTN (hypertension): Code(s): I10 - Essential (primary) hypertension Category: Medical Plan: Blood pressure appears well controlled. Goal is less than 140/90 Patient is concerned that his blood pressures are too low and that he is experiencing orthostatic symptoms. When he has checked his blood pressures at home, systolic blood pressure was in the 120s. Discussed with patient that is unlikely to cause his symptoms He will try breaking his tablet in half - he will take 25 mg b.i.d. Patient agrees (2) Depression: Code(s): F32.A - Depression, unspecified Category: Medical Plan: Significant depression Patient has thoughts of self-harm essentially every day and does have a plan. Says that has no plan to himself right now. Asking nurse navigator to evaluate in the office today (3) Pre-diabetes: Code(s): R73.03 - Prediabetes Category: Medical Plan: A1c 5.7% Pre diabetes Encouraged a diet low in sugars and starches Plan LDL cholesterol is still too high. Goal is less than 100 Encouraged lifestyle changes
[2025-08-27 09:39] VITALS: BP 118/80; PULSE 91; RESP 16; TEMP 37.3; O2SAT 99; BMI 24.7
== END 2025-08-27 10:39 | disposition home or self-care (01) ==
LOC: HO.HMCFM 09:17
PROVIDERS: PCP Family Medicine; Visit Provider Family Medicine
DX: I10 Essential (primary) hypertension (principal); F32.A Depression, unspecified; R73.03 Prediabetes

== ENCOUNTER → 2025-08-27 09:16 | Outpatient (BNVA) | payer OTHER, SELFPAY | PROVIDERS: PCP Family Medicine; Visit Provider Family Medicine | DX: I10 Essential (primary) hypertension (principal); F32.A Depression, unspecified; R73.03 Prediabetes; Z79.899 Other long term (current) drug therapy | CPT/HCPCS: 96127; 99212 ==

== ENCOUNTER 2025-09-06 10:22 | Outpatient (AMB) | payer OTHER, SELFPAY ==
--- NOTE | 2025-09-06 10:24 | A.OFFVIS_ITS ---
Vital Signs 09/06/25 10:29 Height 5 ft 10 in Weight 163 lb 2.273 oz BMI 23.4 BP 137/76 Blood Pressure Location Lt brachial Position Sitting Pulse 69 Pulse Source Pulse Oximeter Intake Visit Reasons: Melena Intake Note: Yanick presents in the office as a new patient for melena. CC: blood in the toilet when he has a BM - not often. States he has no other GI concerns / symptoms. 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 Pt reports intermittent hx of rectal bleeding since his late 20s. Reports that most recently had 2 days of rectal bleeding after defecation. Reports constipation and straining. Rectal bleeding is on wiping, no clots. No rectal pain, abdominal pain, diarrhea. No unintentional weight loss. No family history of colon cancer or IBD. [facility] Medical History Prostate troubles IBS (irritable bowel syndrome) Depression Hemorrhoid HTN (hypertension) Family History Father FH: mental illness Diabetes Paternal Aunt FH: mental illness Mother High blood pressure Maternal Grandmother High blood pressure Diabetes Paternal Grandmother Diabetes Social History Housing: House Alcohol intake: never Patient Tobacco Use Status: Never used Tobacco e-Cigarette/Vaping Use: Never Used Second Hand Smoke Exposure: No service: No Current occupational status: unemployed Current occupational exposures/hazards: No Cognitive needs: No Hearing needs: No Vision needs: Yes Review of Systems Const All systems reviewed & are unremarkable except as noted in HPI and below Physical Exam Exam Exam: No apparent distress Nonicteric Abdomen soft, nondistended rectal: Prolapsed congested hemorrhoids, no pain on digital exam, no blood on gloved finger, good anal squeeze, adequate pelvic descent on bear down Alert and oriented x3, normal gait Vital Signs: Last Vital Signs Pulse 69 09/06/25 10:29 BP 137/76 09/06/25 10:29 BMI result Body Mass Index 23.4 Assessment & Plan Assessment & Plan (1) Prolapsed hemorrhoids: Code(s): K64.8 - Other hemorrhoids Category: Medical (2) Bright red rectal bleeding: Code(s): K62.5 - Hemorrhage of anus and rectum Plan Intermittent rectal bleeding is likely secondary to hemorrhoids as demonstrated on exam today. Other differentials include proctitis, rectal ulcer syndrome, fissure. Plan: - Avoid constipation and straining. Can take OTC senna or miralax to manage constipation. - avoid lifting heavy weights - increase hydration and fiber intake - anusol topical x 10-14 days - no red flags to warrant urgent colo at this time but can be considered if sx persist despite the above or bleeding worsens. Pt to call office in that case. Follow up 6 weeks Medications: New hydrocortisone 2.5% (Proctosol HC) 1 appl IA BEDTIME PRN 30 grams 0RF hemorrhoids 14 days Coding Level of Care Code New Pt Level 4 (95812) Diagnoses Prolapsed hemorrhoids K64.8 Bright red rectal bleeding K62.5
[2025-09-06 10:29] VITALS: BP 137/76; PULSE 69; BMI 23.4
== END 2025-09-06 11:07 | disposition home or self-care (01) ==
LOC: HO.HGI 10:23
PROVIDERS: PCP Family Medicine; Visit Provider Internal Medicine
DX: K64.8 Other hemorrhoids (principal); K62.5 Hemorrhage of anus and rectum
CPT/HCPCS: 99204

== ENCOUNTER → 2025-09-06 10:22 | Outpatient (BNVA) | payer OTHER, SELFPAY | PROVIDERS: PCP Family Medicine; Visit Provider Internal Medicine | DX: K92.1 Melena (principal); K64.8 Other hemorrhoids | CPT/HCPCS: 99202 ==

== ENCOUNTER 2025-11-01 13:55 | Outpatient (AMB) | payer OTHER, SELFPAY ==
--- NOTE | 2025-11-01 14:09 | MHC.OFFVIS ---
Vital Signs 11/01/25 14:10 Height 5 ft 10 in Weight 161 lb 13.109 oz BMI 23.2 BP 117/67 Blood Pressure Location Lt brachial Position Sitting Pulse 88 Intake Visit Reasons: 6W Intake Note: Yanick returns in follow up of bleeding hemorrhoids. CC: Patient reports doing well since last OV and denies having any blood with BMs or constipation. Refrigeration Service Technician Required: No Accompanied by: Self / Same As Patient Allergies No Known Allergies (No Known Allergies*) Allergy (Verified 11/01/25 14:24) HPI Comments Details: 40 y.o M with PMH of HTN who is here for rectal bleeding. Pt reports intermittent hx of rectal bleeding since his late 20s. Reports that most recently had 2 days of rectal bleeding after defecation. Reports constipation and straining. Rectal bleeding is on wiping, no clots. No rectal pain, abdominal pain, diarrhea. No unintentional weight loss. No family history of colon cancer or IBD. 11/01/25: Herefor follow-up on hemorrhoids and constipation. He reports resolution of constipation and rectal bleeding. Used [place] hydrocort x 2 weeks. Continues with using travel bidet and bowel regimen. No pain on defecation but does note a sensation of rectal fullness or discomfort after long walks. [facility] Medical History Prostate troubles IBS (irritable bowel syndrome) Depression Hemorrhoid HTN (hypertension) Family History Father FH: mental illness Diabetes Paternal Aunt FH: mental illness Mother High blood pressure Maternal Grandmother High blood pressure Diabetes Paternal Grandmother Diabetes Social History Housing: House Alcohol intake: never Patient Tobacco Use Status: Never used Tobacco e-Cigarette/Vaping Use: Never Used Second Hand Smoke Exposure: No service: No Current occupational status: unemployed Current occupational exposures/hazards: No Cognitive needs: No Hearing needs: No Vision needs: Yes Review of Systems Const All systems reviewed & are unremarkable except as noted in HPI and below Physical Exam Exam Exam: No apparent distress Nonicteric Abdomen soft, nondistended Alert and oriented x3, normal gait REctal exam deferred today - was performed at previous visit Vital Signs: Last Vital Signs Pulse 88 11/01/25 14:10 BP 117/67 11/01/25 14:10 BMI result Body Mass Index 23.2 Assessment & Plan Assessment & Plan (1) Prolapsed hemorrhoids: Code(s): K64.8 - Other hemorrhoids Category: Medical (2) Bright red rectal bleeding: Code(s): K62.5 - Hemorrhage of anus and rectum Plan Intermittent rectal bleeding was likely secondary to hemorrhoids. This has since resolved. Pt reports sensation of fullness/pressure after prolonged standing or walking. Likely prolapsed hemorrhoids. Pt offered a diagnostic flex sig to r/o other ddx such as anal fissure, proctitis, SURS etc which he declines at this time. He knows to call office if symptoms change/progress. PRN follow up. Coding Level of Care Code Est Pt Level 3 (48375) Diagnoses Prolapsed hemorrhoids K64.8 Bright red rectal bleeding K62.5
[2025-11-01 14:10] VITALS: BP 117/67; PULSE 88; BMI 23.2
== END 2025-11-01 14:40 | disposition home or self-care (01) ==
LOC: HO.HGI 13:56
PROVIDERS: PCP Family Medicine; Visit Provider Internal Medicine
DX: K64.8 Other hemorrhoids (principal); K62.5 Hemorrhage of anus and rectum
CPT/HCPCS: 99213

== ENCOUNTER → 2025-11-01 13:55 | Outpatient (BNVA) | payer OTHER, SELFPAY | PROVIDERS: PCP Family Medicine; Visit Provider Internal Medicine | DX: K64.8 Other hemorrhoids (principal); K62.5 Hemorrhage of anus and rectum | CPT/HCPCS: 99212 ==